=== PATIENT | male | born 1960 | race Two or more races ===

== ENCOUNTER 2024-10-16 13:03 | Emergency (ER) | payer SELFPAY ==
[~2024-10-16] VITALS: Ht 167.6 cm; Wt 104.3 kg
--- NOTE | 2024-10-16 13:38 | ED.PDOC ---
SOB-HPI HPI Comments HPI: Poor Historian. 64-year-old male presents to emergency department for five day history of runny nose productive cough and generalized headaches and body aches. Patient has minimal shortness of breath. Patient works as a fork lift truck operator. Patient has been taking ibuprofen which gives him some relief temporarily. Patient complains of a fever as well. Initial Vital Signs: Temp : 102.9F BP: 149/72 HR: 130 RR: 22 SpO2: 95% on RA Past Medical History: Denies Past Surgical History: Denies Social History: Denies smoking, ETOH, or drug use. Allergies: NKDA REVIEW OF SYSTEMS: CONSTITUTIONAL: Denies acute: diaphoresis, chills, HEAD: Denies acute: headache, photophobia Eyes: Denies acute: Double vision, vision loss, eye pain, eye discharge. EARS: Denies acute: tinnitus, hearing loss, ear discharge, ear pain, THROAT: Denies acute: sore throat, swelling, difficulty swallowing , pain with swallowing, change in voice. NECK: Denies acute: neck pain, neck swelling, stiff neck. HEART: Denies acute : chest pain, palpitations, LUNGS: Denies acute: wheezing, hemoptysis ABDOMEN: Denies acute: abdominal pain, Nausea, Vomiting, diarrhea, melena , hematemesis, hematochezia SKIN: Denies acute: rash, redness, lesions, itchiness. EXTREMITIES: Denies acute: calf pain, numbness, tingling, weakness, denies pain in extremity. Denies acute: Low back pain. Neuro: Denies acute: focal neurological deficit, motor or sensory focal neurological deficit, tremors, seizure like activity, confusion, dizziness, change in mental status, loss of bowel or bladder function, cauda equina like symptoms. : Denies acute: dysuria, hematuria, flank pain, increase in urinary frequency. PSYCH: Denies acute: hallucination, suicidal ideation, homicidal ideation. PHYSICAL EXAM: General: no acute distress, awake and alert. Head: normocephalic, atraumatic. Neck: supple, trachea is midline, no swelling. Throat: Normal phonation. Eyes:, no erythema, no purulent discharge, no proptosis, no icterus. Heart: regular tachycardic,, no significant murmur appreciated. Lungs: no apparent respiratory distress, Able to speak in full sentences. No wheezing, no rhonchi, no crackles. No stridors Clear to auscultation bilaterally. Abdomen: non tender to palpation, non distended, soft, no guarding, no rebound, + bowel sounds. Neuro: Awake, Alert, oriented to name, self, situation, follows commands GCS=15. Speech is normal. Skin: no petechia, no purpura, no cyanosis, non-pale, not jaundice. Lower extremities: --no - Pitting edema no deformity, no focal swelling, no calf TTP. Makes eye contact. moves all four extremities. Face: no apparent facial droop. Ambulating in the ED independently. Time Seen by MD: 13:20 Reviewed notes: Nurses Notes, Allergies Information Source: Patient X-Ray, Labs, Meds, VS Vital Signs Date Time Temp Pulse Resp B/P (MAP) Pulse Ox O2 Delivery O2 Flow Rate FiO2 10/16/24 16:39 99.0 99.0 10/16/24 16:38 99.0 10/16/24 15:43 101.3 101.3 10/16/24 15:42 101.3 10/16/24 14:41 102.9 10/16/24 14:30 132 10/16/24 14:29 102.9 130 22 149/72 (97) 95 10/16/24 14:29 102.9 130 22 149/72 (97) 95 102.9 10/16/24 14:29 130 22 95 Room Air Lab Test 10/16/24 18:55 10/16/24 17:10 10/16/24 15:00 10/16/24 13:51 Range/Units Urine Color Pending Urine Clarity Pending Urine pH Pending Urine Specific [place] Pending Urine Protein Pending Urine Ketones Pending Urine Blood Pending Urine Nitrite Pending Urine Bilirubin Pending Urine Urobilinogen Pending Urine Leukocyte Esterase Pending Urine RBC Pending Urine WBC Pending Urine Squamous Epithelial Cells Pending Urine Bacteria Pending Urine Glucose Pending Troponin I High Sensitivity < 3 L < 3 L < 3 L </=54 ng/L White Blood Count 14.2 H 4.4-10.8 10^3/uL Red Blood Count 5.40 4.5-5.90 10^6/uL Hemoglobin 16.5 13.5-17.5 g/dL Hematocrit 47.1 41.0-53.0 % Mean Corpuscular Volume 87.1 80.0-100.0 fL Mean Corpuscular Hemoglobin 30.6 28.0-32.0 pg Mean Corpuscular Hemoglobin Concent 35.1 32.0-36.0 g/dL Red Cell Distribution Width 14.2 11.8-14.3 % Platelet Count 292 140-450 10^3/uL Mean Platelet Volume 8.9 6.9-10.8 fL Neutrophils (%) (Auto) 77.4 37.0-80.0 % Lymphocytes (%) (Auto) 8.6 L 10.0-50.0 % Monocytes (%) (Auto) 13.6 H 0.0-12.0 % Eosinophils (%) (Auto) 0.2 0.0-7.0 % Basophils (%) (Auto) 0.2 0.0-2.0 % Neutrophils # (Auto) 11.0 H 1.6-8.6 10 ^3/uL Lymphocytes # (Auto) 1.2 0.4-5.4 10 ^3/uL Monocytes # (Auto) 1.9 H 0-1.3 10 ^3/uL Eosinophils # (Auto) 0 0-0.8 10 ^3/uL Basophils # (Auto) 0 0-0.2 10 ^3/uL Nucleated Red Blood Cells 0.0 % Sodium Level 137 136-145 mmol/L Potassium Level 3.8 3.5-5.1 mmol/L Chloride Level 99 98-107 mmol/L Carbon Dioxide Level 31 20-31 mmol/L Anion Gap 7 5-15 Blood Urea Nitrogen 11 9-23 mg/dL Creatinine 1.09 0.700-1.30 mg/dL Glomerular Filtration Rate Calc 75 >90 mL/min BUN/Creatinine Ratio 10.1 10.0-20.0 Serum Glucose 117 H 74-106 mg/dL Calcium Level 10.0 8.7-10.4 mg/dL Total Bilirubin 1.0 0.2-1.0 mg/dL Aspartate Amino Transferase (AST) 22 13-40 U/L Alanine Aminotransferase (ALT) 24 7-40 U/L Alkaline Phosphatase 74 46-116 U/L Total Protein 7.0 5.7-8.2 g/dL Albumin 4.6 3.2-4.8 g/dL Test 10/16/24 13:45 Range/Units Influenza Type A Antigen Negative Negative Influenza Type B Antigen Negative Negative SARS-CoV-2 Antigen (Rapid) Positive *A NEGATIVE Current Medications Medications (Trade) Dose Ordered Sig/Zane Route Start Time Stop Time Status Last Admin Sodium Chloride 1,000 ml @ 1,000 mls/hr Q1H ONCE IV 10/16/24 14:00 10/16/24 14:59 DC 10/16/24 14:49 Acetaminophen (Tylenol Tablet) 650 mg ONCE ONCE PO 10/16/24 14:30 10/16/24 14:37 DC 10/16/24 14:41 Ceftriaxone Sodium 50 ml @ 100 mls/hr ONCE ONCE IV 10/16/24 15:30 10/16/24 15:59 DC 10/16/24 15:49 Dexamethasone Sodium Phosphate (Decadron Injection) 10 mg ONCE ONCE IV 10/16/24 15:30 10/16/24 15:31 DC 10/16/24 15:49 [place] [id number] Ph: [phone] DIAGNOSTIC IMAGING Diagnostic Imaging Report : [id number] Signed PATIENT: EVANGELISTA SINGH BILLACCT: [id number] UNIT: [id number] : 1960 LOC: ER ROOM / BED: / AGE / SEX: 64 / M ADM STATUS: REG ER SERVICE 1333 ORDERING PHYSICIAN: IRINA MORA DO PROCEDURE(s): CXRP - CHEST PORTABLE REASON: flu like ORDER NUMBER(s): [id number], ACCESSION NUMBER(s): [id number] CHEST RADIOGRAPH Indication: flu like Technique: Single frontal view of the chest was obtained COMPARISON: None FINDINGS: Lines and Tubes: None Lungs: Clear Pleura: No effusion. No pneumothorax. Cardiomediastinal contours: Tortuous descending thoracic aorta. Bones: Unremarkable IMPRESSION: 1. Tortuous descending thoracic aorta 2. No pneumonia 3. No CHF 4. No infiltrates ATED BY: MARY ALVAREZ MD DICTATED DATE/TIME: 10/16/24 1358 SIGNED BY: MARY ALVAREZ MD SIGNED DATE/TIME: 10/16/24 135 CC: Departure 1 Departure Time of Disposition: 17:19 Impression: Primary Impression: COVID-19 virus infection I personally scribed for IRINA MORA DO ([email or web address]) on 10/16/24 at 16:17. Electronically submitted by Otis Calvillo ([email or web address]). I personally scribed for IRINA MORA DO ([email or web address]) on 10/16/24 at 18:49. Electronically submitted by Marguerite Ramos ([email or web address]). I personally scribed for IRINA MORA DO ([email or web address]) on 10/16/24 at 18:59. Electronically submitted by Marguerite Ramos ([email or web address]). IRINA MORA DO Oct 16, 2024 13:38
--- NOTE | 2024-10-16 13:57 | DVH ---
CHEST RADIOGRAPH Indication: flu like Technique: Single frontal view of the chest was obtained COMPARISON: None FINDINGS: Lines and Tubes: None Lungs: Clear Pleura: No effusion. No pneumothorax. Cardiomediastinal contours: Tortuous descending thoracic aorta. Bones: Unremarkable IMPRESSION: 1. Tortuous descending thoracic aorta 2. No pneumonia 3. No CHF 4. No infiltrates
[2024-10-16 14:15] LABS: Basophils # (auto) 0 10 ^3/uL (0-0.2); Basophils % (auto) 0.2 % (0.0-2.0); Eosinophils # (auto) 0 10 ^3/uL (0-0.8); Eosinophils % (auto) 0.2 % (0.0-7.0); Hematocrit 47.1 % (41.0-53.0); Hemoglobin 16.5 g/dL (13.5-17.5); Lymphocytes # (auto) 1.2 10 ^3/uL (0.4-5.4); Lymphocytes % (auto) 8.6 % (10.0-50.0); Mean Corpuscular Hemoglobin 30.6 pg (28.0-32.0); Mean Corpuscular Hgb Conc. 35.1 g/dL (32.0-36.0); Mean Corpuscular Volume 87.1 fL (80.0-100.0); Monocytes # (auto) 1.9 10 ^3/uL (0-1.3); Monocytes % (auto) 13.6 % (0.0-12.0); Neutrophils % (auto) 77.4 % (37.0-80.0); Platelet Count (auto) 292 10^3/uL (140-450); Red Cell Distribution Width 14.2 % (11.8-14.3); White Blood Cell 14.2 10^3/uL (4.4-10.8)
[2024-10-16 14:24] LABS: Alanine Aminotransferase 24 U/L (7-40); Albumin 4.6 g/dL (3.2-4.8); Alkaline Phosphatase 74 U/L (46-116); Anion Gap 7 (5-15); Aspartate Aminotransferase 22 U/L (13-40); BUN/Creatinine Ratio 10.1 (10.0-20.0); Blood Urea Nitrogen 11 mg/dL (9-23); Carbon Dioxide 31 mmol/L (20-31); Chloride 99 mmol/L (98-107); Potassium 3.8 mmol/L (3.5-5.1); Sodium 137 mmol/L (136-145)
[2024-10-16 14:28] LABS: Glucose 117 mg/dL (74-106)
[2024-10-16 14:29] VITALS: BP 149/72; RESP 22; O2SAT 95
[2024-10-16 14:30] VITALS: PULSE 132
[2024-10-16] MEDS: ACETAMINOPHEN 325 MG TAB PO ONE (14:41)
[2024-10-16] MEDS: SODIUM CHLORIDE 0.9% 1,000 ML IV ONE (14:49)
[2024-10-16 15:09] LABS: Rapid Influenza A Negative (Negative); Rapid Influenza B Negative (Negative)
[2024-10-16 15:11] LABS: COVID19 ANTIGEN SOFIA FIA POSITIVE (NEGATIVE)
[2024-10-16] MEDS: DexAMETHasone SOD PHOS 10MG/1ML VIAL INJ IV ONE (15:49)
[2024-10-16] MEDS: cefTRIAXone 1GM/50ML D5W 50 ML IV ONE (15:49)
[2024-10-16] MEDS: IBUPROFEN 400 MG TAB PO ONE (16:38)
[2024-10-16 16:39] VITALS: TEMP 99
[2024-10-16 18:55] LABS: Urine Bacteria None Seen /hpf (None Seen); Urine WBC None Seen /hpf (0 - 3)
[2024-10-16 19:16] LABS: Urine Blood Negative /uL (Negative); Urine Clarity Clear (Clear); Urine Color Colorless (Yellow); Urine Protein, UAD Negative (Negative); Urine Specific Gravity 1.005 (1.001-1.035); Urine Urobilinogen Normal (Negative); Urine pH 5.5 (5.0-9.0)
--- NOTE | 2024-10-17 07:41 | ECG ---
[facility] Test Date: 2024-10-16 Test Time: 14:30:20 Pat Name: EVANGELISTA SINGH Department: er Room: Gender: M Campaign Developer: zaynab : 1960 Requested By: IRINA MORA Order Number: [id number] Reading MD: Measurements Intervals [place] Rate: 132 P: 44 WA: 132 QRS: -2 QRSD: 88 T: 30 QT: 289 QTc: 428 Interpretive Statements Sinus tachycardia Baseline wander in lead(s) I,III,aVL,aVF Please click the below link to view image of tracing.
== END 2024-10-16 23:50 | disposition left against medical advice (07) ==
LOC: ER 13:03
DX: U07.1 COVID-19 (principal); Z88.6 Allergy status to analgesic agent
CPT/HCPCS: 36415; 71045; 80053; 81001; 84484; 85025; 87426; 87804; 93005; 96361; 96365; 96375; 99285; J0696; J1100; J7030